=== PATIENT | female | born 1985 | race Caucasian/White ===

== ENCOUNTER 2020-02-07 04:39 | Observation (INO) | payer OTHER ==
[~2020-02-07] VITALS: Ht 172.7 cm; Wt 48.8 kg
[2020-02-07] MEDS ORDERED: NS 1,000 ML IV ONE ×2 (06:15→08:30)
[2020-02-07] MEDS ORDERED: ONDANSETRON 4MG/2ML VIAL IV ONE (06:15)
[2020-02-07 06:29] LABS: BASO # 0.1 10^3/uL (0.0-0.2); BASO % 0.5 % (0.0-1.0); EOS # 0.3 10^3/uL (0.0-0.5); EOS % 1.8 % (0.0-3.0); HEMATOCRIT 45.2 % (36.0-47.0); HEMOGLOBIN 14.3 g/dl (12.0-15.5); LYMPH % 15.7 % (24.0-44.0); MEAN CORPUSCULAR HEMOGLOBIN 30.4 pg (27.0-33.0); MEAN CORPUSCULAR HGB CONC 31.6 g/dl (32.0-36.5); MONO # 1.3 10^3/uL (0.0-0.8); MONO % 6.6 % (0.0-5.0); NEUTROPHILS # 14.5 10^3/uL (1.5-8.5); NEUTROPHILS % 74.9 % (36.0-66.0); PLATELET COUNT, AUTOMATED 311 10^3/uL (150-450); RED BLOOD COUNT 4.71 10^6/uL (4.00-5.40); WHITE BLOOD COUNT 19.3 10^3/uL (4.0-10.0)
[2020-02-07] MEDS ORDERED: HYDROMORPHONE HCL 0.5 MG/ 0.5 ML SYRINGE (J1170 PER 1) IV ONE (06:30)
[2020-02-07 06:52] LABS: ALT/SGPT 18 U/L (12-78); BILIRUBIN,DIRECT 0.1 MG/DL (0.0-0.2); BILIRUBIN,TOTAL 0.3 MG/DL (0.2-1.0); BLOOD UREA NITROGEN 15 MG/DL (7-18); CALCIUM LEVEL 9.6 MG/DL (8.5-10.1); CARBON DIOXIDE LEVEL 28 MEQ/L (21-32); CHLORIDE LEVEL 109 MEQ/L (98-107); CREATININE FOR GFR 0.88 MG/DL (0.55-1.30); GLOMERULAR FILTRATION RATE > 60.0 (>60); GLUCOSE, FASTING 101 MG/DL (70-100); HCG, SERUM QUANTITATIVE < 1.0 MIU/ML; LIPASE 167 U/L (73-393); POTASSIUM SERUM 4.2 MEQ/L (3.5-5.1); SODIUM LEVEL 143 MEQ/L (136-145); TOTAL PROTEIN 7.6 GM/DL (6.4-8.2)
--- NOTE | 2020-02-07 07:57 | REPVR ---
PROCEDURE INFORMATION: Exam: CT Abdomen And Pelvis Without Contrast Exam date and time: 02/07/2020 7:43 AM Age: 34 years old Clinical indication: Condition or disease; Other: History of sma syndrome here with periumbilical pain TECHNIQUE: Imaging protocol: Computed tomography of the abdomen and pelvis without contrast. Radiation optimization: All CT scans at this facility use at least one of these dose optimization techniques: automated exposure control; mA and/or kV adjustment per patient size (includes targeted exams where dose is matched to clinical indication); or iterative reconstruction. COMPARISON: No relevant prior studies available. FINDINGS: Liver: No mass. Gallbladder and bile ducts: No calcified stones. No ductal dilation. Pancreas: No ductal dilation. Spleen: No splenomegaly. Adrenals: No mass. Kidneys and ureters: No hydronephrosis. Stomach and bowel: See "Intraperitoneal space" finding. Appendix: No evidence of appendicitis. Intraperitoneal space: There is a paucity of intra-abdominal fat, which degrades assessment particularly of the bowel configuration. There does however appear to be narrowing of the duodenum inferior to the superior mesenteric artery consistent with known SMA syndrome. The stomach is patulous although not substantially distended. No bowel obstruction. Vasculature: No abdominal aortic aneurysm. Lymph nodes: No enlarged lymph nodes. Urinary bladder: Unremarkable as visualized. Reproductive: Unremarkable as visualized. Bones/joints: No acute fracture. 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 Soft tissues: Unremarkable. Other findings: Evaluation of solid organs and vasculature is suboptimal lacking intravenous contrast. IMPRESSION: 1. Suboptimal study lacking intravenous contrast particularly in a thin patient with a paucity of abdominal fat. Allowing for this, there is no acute intra-abdominal abnormality. 2. Narrowing of the duodenum inferior to the superior mesenteric artery consistent with known SMA syndrome. The stomach is patulous although nondistended, and there is no bowel obstruction. Electronically signed by: Jose Manuel Sims On 02/07/2020 07:57:37 AM
[2020-02-07] MEDS ORDERED: PROMETHAZINE INJ 25 MG/ML VIAL (J2550) IV ONE (08:00)
[2020-02-07] MEDS ORDERED: METOCLOPRAMIDE INJ 10MG/2ML VIAL (J2765 PER 1) IV ONE (09:45)
[2020-02-07] MEDS: HYDROMORPHONE HCL 0.5 MG/ 0.5 ML SYRINGE (J1170 PER 1) IV PRN ×2 (09:53→10:36)
[2020-02-07] MEDS ORDERED: diphenhydrAMINE 50MG/ML VIAL (J1200) As Ordered ONE (12:26)
[2020-02-07] MEDS: DICYCLOMINE INJ 20MG/2ML (J0500) IM SCH ×3 (12:36→21:44)
[2020-02-07] MEDS: D5W/0.9% SODIUM CHLORIDE 1,000 ML IV SCH (12:36)
[2020-02-07 12:55] VITALS: BP 108/75
[2020-02-07] MEDS ORDERED: HYDROMORPHONE HCL 0.5 MG/ 0.5 ML SYRINGE (J1170 PER 1) IV PRN ×2 (13:00)
[2020-02-07] MEDS ORDERED: HYOSCYAMINE SULFATE 0.125 MG SUBL TABLET SL ONE (13:00)
[2020-02-07] MEDS ORDERED: diphenhydrAMINE 50MG/ML VIAL (J1200) IV ONE (13:00)
--- NOTE | 2020-02-07 13:27 | HPEPDOC ---
General Date of Admission Feb 07, 2020 at 04:40 Date of Service: Feb 07, 2020 Chief Complaint The patient is a 34-year-old female admitted with a reason for visit of Intractable Vomiting. Source: Patient History of Present Illness 34-year-old female with a past medical history of chronic abdominal abdomen attributed to SMA syndrome, history of H. pylori infection , anxiety, depression status post surgery for SMA syndrome in november 2019 at [facility] in [place], [place] recently moved up here 1 month ago to be close to her father and rest of the family members presented to the emergency room because of severe abdominal pain and spasm with intractable nausea and vomiting for the past 2 days. She reports that she hasn't been able to keep anything down for the past 2 days. She denies any diarrhea. Currently she is having retching and dry heaving. She did report that she has chronic abdominal pain and for that she takes hyoscyamine sublingually. She reports that she is allergic to morphine, ketamine, haloperidol, and the only things that help her with the abdominal pain is a Dilaudid and Ativan. . She reports that she has lost about 20 pounds of weight in the past 2 years. In regards to her abdominal pain. It is spasmodic in nature. 10/ 10 in intensity. Located in the epigastrium and periumbilical region with radiation all over the abdomen. During episodes of pain she would sit forward in child's pose ( knee-Chest) position with a pillow stuffed underneath her belly. , It seems that she feels comfortable in this position. During my interview, she was shivering and her teeth were chattering and she says that she has these before of severe episode of pain comes on. Denied being cold. CT done in the emergency room showed narrowing of the duodenum inferior to the superior mesenteric artery, consistent with known eczema syndrome. The stomach was patulous, although not substantially distended, though the study was suboptimal due to lack of intravenous contrast. Return contrast and the possibility of abdominal fat She was admitted for intractable abdominal pain, nausea and vomiting, unable to keep any food down for further evaluation and management. Home Medications No Active Prescriptions or Reported Meds Allergies Coded Allergies: Iodine and Iodide Containing Produc (Verified Allergy, Severe, SOB, 02/07/20) NEEDS PRE-TREATMENT FIRST haloperidol (Verified Allergy, Severe, SPIKES ANXIETY, 02/07/20) ketamine (Verified Allergy, Severe, ANAPHYLACTIC, 02/07/20) shellfish derived (Verified Allergy, Severe, ANAPHYLACTIC, 02/07/20) Penicillins (Verified Allergy, Mild, HIVES, 02/07/20) morphine (Verified Allergy, Mild, RASH, 02/07/20) Past Medical History Medical History SMA syndrome s/p surgery in November in [facility] in [place]. Gastroparesis Chronic abdominal pain Malnutrition Anxiety, depression Surgical History Breast Augmentation Duodenal Surgery for SMA syndrome Hystroscopy and opening of bilateral tubes Family History Mother Drug addict 1 bother and sister drug addict Maternal grand mother and maternal great grandmother has dementia Paternal grandfather gallbladder problems. Father and other members of the father's family with hypertension Social History * Smoker: non-smoker Alcohol: Denies Drugs: marijuana (occasionally) A-FIB/CHADSVASC A-FIB History Current/History of A-Fib/PAF?: No Review of Systems Constitutional: Denies: Chills, Fever, Night Sweats Eyes: Denies: Pain, Vision change ENT: Denies: Head Aches, Ear Pain, Dysphagia Skin: Denies: Rash, Lesions, Breakdown Pulmonary: Denies: Dyspnea, Cough Cardiovascular: Denies: Chest Pain, Palpitations, Orthopnea, Paroxysmal Noc. Dyspnea, Lt Headedness Gastrointestinal: Reports: Nausea, Vomiting, Abdominal Pain; Denies: Diarrhea Genitourinary: Denies: Dysuria, Frequency, Incontinence, Retention Hematologic: Denies: Bruising, Bleeding Excessively Musculoskeletal: Denies: Neck Pain, Back Pain, Joint Pain, Muscle Pain, Spasms Neurological: Denies: Weakness, Numbness, Change in speech, Confusion Physical Examination General Exam: Positive: Alert, Cooperative, Severe Distress (, abdominal pain) Eye Exam: Positive: PERRLA, Conjunctiva & lids normal, EOMI; Negative: Sclera icteric ENT Exam: Positive: Atraumatic, Mucous membr. moist/pink, Pharynx Normal, Other ENT (, bitemporal wasting) Neck Exam: Positive: Supple; Negative: JVD, thyromegaly Chest Exam: Positive: Clear to auscultation, Normal air movement Heart Exam: Positive: Tachycardic, Regular Rhythm, Normal S1, Normal S2; Negative: Murmurs, Rubs Telemetry: Positive: No significant arrhythmia Abdomen Exam: Positive: BS Hypoactive, Soft, Tenderness Extremity Exam: Positive: Normal pulses; Negative: Clubbing, Cyanosis, Edema Skin Exam: Positive: Nl turgor and temperature; Negative: Breakdown, Lesion Psych Exam: Positive: Anxiety, Memory Intact, Oriented x 3 Vital Signs Vital Signs Date Time Temp Pulse Resp B/P (MAP) Pulse Ox O2 Delivery O2 Flow Rate FiO2 02/07/20 12:29 98.2 02/07/20 12:15 107 18 130/89 (103) 99 Room Air Laboratory Data Labs 24H Laboratory Tests 2 02/07/20 06:17: Immature Granulocyte % (Auto) 0.5, Neutrophils (%) (Auto) 74.9H, Lymphocytes (%) (Auto) 15.7L, Monocytes (%) (Auto) 6.6H, Eosinophils (%) (Auto) 1.8, Basophils (%) (Auto) 0.5, Neutrophils # (Auto) 14.5H, Lymphocytes # (Auto) 3.0, Monocytes # (Auto) 1.3H, Eosinophils # (Auto) 0.3, Basophils # (Auto) 0.1, Nucleated Red Blood Cells % (auto) 0.0, Anion Gap 6L, Glomerular Filtration Rate > 60.0, Lactic Acid Level 1.7, Calcium Level 9.6, Total Bilirubin 0.3, Direct Bilirubin 0.1, Aspartate Amino Transf (AST/SGOT) 14, Alanine Aminotransferase (ALT/SGPT) 18, Alkaline Phosphatase 58, Total Protein 7.6, Albumin 4.0, Albumin/Globulin Ratio 1.1L, Lipase 167, Human Chorionic Gonadotropin, Quant < 1.0 02/07/20 10:54: Urine Color YELLOW, Urine Appearance TURBIDH, Urine pH 8.0, Urine Specific [place] 1.012, Urine Protein 1+H, Urine Glucose (UA) NEGATIVE, Urine Ketones TRACEH, Urine Blood NEGATIVE, Urine Nitrite NEGATIVE, Urine Bilirubin NEGATIVE, Urine Urobilinogen 0.2, Urine Leukocyte Esterase NEGATIVE, Urine WBC (Auto) 0, Urine RBC (Auto) 0, Urine Hyaline Casts (Auto) 0, Urine Bacteria (Auto) NEGATIVE, Urine Squamous Epithelial Cells 1, Urine Amorphous Sediment LARGEH, Urine Mucus (Auto) SMALL, Urine Sperm (Auto) CBC/BMP Laboratory Tests 02/07/20 06:17 Assessment/Plan 34-year-old female with a past medical history of chronic abdominal abdomen attributed to SMA syndrome, history of H. pylori infection , anxiety, depression status post surgery for SMA syndrome in november 2019 at [facility] in [place] recently moved up here 1 month ago to be close to her father and rest of the family members presented to the emergency room because of severe abdominal pain and spasm with intractable nausea and vomiting for the past [address] done in the emergency room showed narrowing of the duodenum inferior to the superior mesenteric artery, consistent with known eczema syndrome. The stomach was patulous, although not substantially distended, though the study was suboptimal due to lack of intravenous contrast. Return contrast and the possibility of abdominal fat She was admitted for intractable abdominal pain, nausea and vomiting, unable to keep any food down for further evaluation Nausea/ Vomiting / abdominal pain Has H/o SMA syndrome this may have been precipitated/ worsened by Weight loss R/O gastroparesis. Gastric emptying study IVF, NPO, Metronidazole, zofran, dilaudid, hyoscamine S?L, dicyclomine IM. Severe protein Calorie Malnutrition BMI of 15.4, wasting of intercostal muscles of the chest and bitemporal wasting. ? Eating disorder Denies any drug abuse. Anxiety Benadryl Leukocytosis this is probably due to reactive Demargination due to severe pain and vomiting No signs or symptoms of infection found Plan / VTE VTE Prophylaxis Ordered?: Yes MAIKEL SOTO MD Feb 07, 2020 13:27
[2020-02-07] MEDS: METOCLOPRAMIDE INJ 10MG/2ML VIAL (J2765 PER 1) IV SCH ×2 (15:45→21:45)
[2020-02-07] MEDS: ONDANSETRON 4MG/2ML VIAL IV PRN (16:47)
[2020-02-07 22:00] VITALS: BP 126/64
[2020-02-08] MEDS ORDERED: LORazepam 2 MG TAB PO ONE (00:30)
[2020-02-08] MEDS: D5W/0.9% SODIUM CHLORIDE 1,000 ML IV SCH ×3 (00:30→22:18)
[2020-02-08] MEDS: HYOSCYAMINE SULFATE 0.125 MG SUBL TABLET SL PRN ×2 (00:30→22:18)
[2020-02-08] MEDS: ONDANSETRON 4MG/2ML VIAL IV PRN ×2 (00:34→16:30)
[2020-02-08] MEDS ORDERED: LORazepam 2 MG/ML VIAL IV PRN (01:00)
[2020-02-08] MEDS: METOCLOPRAMIDE INJ 10MG/2ML VIAL (J2765 PER 1) IV SCH ×4 (03:59→20:40)
[2020-02-08 06:00] VITALS: BP 111/62
[2020-02-08] MEDS: DICYCLOMINE INJ 20MG/2ML (J0500) IM SCH ×3 (09:00→20:40)
[2020-02-08 11:07] LABS: HEMATOCRIT 38.1 % (36.0-47.0); MEAN CORPUSCULAR HEMOGLOBIN 31.4 pg (27.0-33.0); MEAN CORPUSCULAR HGB CONC 31.8 g/dl (32.0-36.5); PLATELET COUNT, AUTOMATED 225 10^3/uL (150-450); RED BLOOD COUNT 3.85 10^6/uL (4.00-5.40); WHITE BLOOD COUNT 8.4 10^3/uL (4.0-10.0)
[2020-02-08 11:24] LABS: HEMOGLOBIN 12.1 g/dl (12.0-15.5)
[2020-02-08 11:35] LABS: BLOOD UREA NITROGEN 9 MG/DL (7-18); CALCIUM LEVEL 7.8 MG/DL (8.5-10.1); CARBON DIOXIDE LEVEL 26 MEQ/L (21-32); CHLORIDE LEVEL 112 MEQ/L (98-107); GLOMERULAR FILTRATION RATE > 60.0 (>60); GLUCOSE, FASTING 88 MG/DL (70-100); POTASSIUM SERUM 3.9 MEQ/L (3.5-5.1); SODIUM LEVEL 143 MEQ/L (136-145)
[2020-02-08] MEDS: HYDROMORPHONE HCL 0.5 MG/ 0.5 ML SYRINGE (J1170 PER 1) IV PRN ×3 (13:42→20:39)
[2020-02-08 14:00] VITALS: BP 108/77
--- NOTE | 2020-02-08 18:32 | IPNPDOC ---
Text Note Date of Service The patient was seen on 02/08/20. NOTE HPI: Ms. Ramos is a 34 yo F with a PMHx of SMA syndrome that presented to the ED complaining of intractable nausea and vomiting of 2 days duration. SUBJECTIVE: No acute events overnight. Pt states that she has not had any vomiting since last night in the ED. She states that her abdominal pain has improved. Pt denies feeling feverish, short of breath, or having chest pain. OBJECTIVE: VITAL SIGNS: please see below. GENERAL: Pt is a lethargic appearing very cachectic, thin female, laying in the position in bed, in no acute distress. HEENT: NC, AT, no scleral icterus, EOMI, PERRL, no pharyngeal erythema. CV: RRR, no murmurs, rubs, or gallops. RESP: CTAB, no rales, rhonchi, or wheezes. ABDOMEN: soft, nontender, nondistended, bowel sounds present in all quadrants, no obvious masses/organomegaly appreciated EXTREMITIES: no swelling or edema. PSYCH: AAOx3, lethargic LABORATORY: please see below MICROBIOLOGY: none. IMAGING: CT ABD/PELVIS: Impression "1. Suboptimal study lacking intravenous contrast particularly in a thin patient with a paucity of abdominal fat. Allowing for this, there is no acute intra-abdominal abnormality. 2. Narrowing of the duodenu m inferior to the superior mesenteric artery consistent with known SMA syndrome. The stomach is patulous although nondistended, and there is no bowel obstruction." GASTRIC EMPTYING STUDY: Pending official read ASSESSMENT/PLAN: Ms. Ramos is a 34 yo F with a PMHx of SMA syndrome s/p recent surgery (November 2019) for rerouting of mesenteric artery that presented with intractable vomiting of 2 days duration, found to have post-surgical pain concerning for postoperative complication. # Nausea/Vomiting and abdominal pain 2/2 SMA syndrome, questionable postsurgical complication? -Pt is on dilaudid, Bentyl and Levsin for pain control. -Pt is on zofran, Reglan for nausea -Continue IVF NS 100 cc/hr -Clear liquid diet ordered, continue as tolerated. Will upgrade diet as tolerated. -Gastric emptying study done today to rule out gastroparesis 2/2 recent surgery. Pending official read -In process of obtaining records from previous hospital that performed surgery. Admitting physician spoke to General Surgery, who requested records of type of surgery performed in order to determine whether additional surgery warranted/necessary -Monitoring QTc, WNL at this point #. Anxiety and depression -Continue Ativan for time being only. We do not foresee discharge on this medication to prevent dependence #. Low body weight, BMI 16.4 -Pt denies eating disorder or drug use. Likely etiology of SMA syndrome -Patient will need outpatient nutrition counseling DVT PPX: TEDs/SCDs VS,Fishbone, I+O VS, Fishbone, I+O Laboratory Tests 02/08/20 10:49 Vital Signs Date Time Temp Pulse Resp B/P (MAP) Pulse Ox O2 Delivery O2 Flow Rate FiO2 02/08/20 06:00 98.1 59 16 111/62 (78) 99 Room Air I&O- Last 24 Hours up to 6 AM 02/08/20 06:00 Intake Total 4040 ml Output Total 620 ml Balance 3420 ml GME ATTESTATION GME ATTESTATION My faculty preceptor for this patient encounter was physically present during the encounter and was fully available. All aspects of the patient interview, examination, medical decision making process, and medical care plan development were reviewed and approved by the faculty preceptor. The faculty preceptor is aware and concurs with the plan as stated in the body of this note and will attest to such by his/her cosignature. ATTENDING NOTE Patient was seen and examined by me personally with the residents and the students. Agree with the above assessment and plan. RADHA KEENAN OMS-3 Feb 08, 2020 13:33 CHARY JACKSON MD Feb 08, 2020 18:32 VIVIAN ORTA MD Feb 12, 2020 14:05
[2020-02-08] MEDS: LORazepam 0.5 MG TAB PO PRN (22:20)
[2020-02-09] MEDS: ONDANSETRON 4MG/2ML VIAL IV PRN (00:41)
[2020-02-09] MEDS: HYDROMORPHONE HCL 0.5 MG/ 0.5 ML SYRINGE (J1170 PER 1) IV PRN ×5 (00:42→21:12)
[2020-02-09] MEDS: METOCLOPRAMIDE INJ 10MG/2ML VIAL (J2765 PER 1) IV SCH ×4 (03:55→21:05)
[2020-02-09 05:51] LABS: BASO # 0.1 10^3/uL (0.0-0.2); BASO % 0.6 % (0.0-1.0); EOS # 0.3 10^3/uL (0.0-0.5); EOS % 2.9 % (0.0-3.0); HEMATOCRIT 39.1 % (36.0-47.0); HEMOGLOBIN 12.3 g/dl (12.0-15.5); LYMPH # 2.1 10^3/uL (1.5-5.0); LYMPH % 24.1 % (24.0-44.0); MEAN CORPUSCULAR HEMOGLOBIN 30.8 pg (27.0-33.0); MEAN CORPUSCULAR HGB CONC 31.5 g/dl (32.0-36.5); MEAN CORPUSCULAR VOLUME 97.8 fl (80.0-96.0); MONO # 0.8 10^3/uL (0.0-0.8); MONO % 9.3 % (0.0-5.0); NEUTROPHILS # 5.6 10^3/uL (1.5-8.5); NEUTROPHILS % 62.5 % (36.0-66.0); PLATELET COUNT, AUTOMATED 230 10^3/uL (150-450); WHITE BLOOD COUNT 8.9 10^3/uL (4.0-10.0)
[2020-02-09 06:00] VITALS: BP 110/82
[2020-02-09 06:10] LABS: BLOOD UREA NITROGEN 6 MG/DL (7-18); CALCIUM LEVEL 7.8 MG/DL (8.5-10.1); CARBON DIOXIDE LEVEL 27 MEQ/L (21-32); CHLORIDE LEVEL 109 MEQ/L (98-107); CREATININE FOR GFR 0.62 MG/DL (0.55-1.30); GLOMERULAR FILTRATION RATE > 60.0 (>60); GLUCOSE, FASTING 78 MG/DL (70-100); POTASSIUM SERUM 3.3 MEQ/L (3.5-5.1); SODIUM LEVEL 142 MEQ/L (136-145)
[2020-02-09] MEDS ORDERED: POTASSIUM CHLORIDE 10 MEQ SR TABLET PO ONE (08:00)
[2020-02-09] MEDS: HYOSCYAMINE SULFATE 0.125 MG SUBL TABLET SL PRN ×2 (08:27→15:52)
[2020-02-09] MEDS: DICYCLOMINE INJ 20MG/2ML (J0500) IM SCH ×3 (08:27→21:05)
[2020-02-09] MEDS: D5W/0.9% SODIUM CHLORIDE 1,000 ML IV SCH ×3 (08:42→18:18)
[2020-02-09] MEDS: LORazepam 0.5 MG TAB PO PRN ×2 (11:00→23:34)
[2020-02-09 14:00] VITALS: BP 117/86
--- NOTE | 2020-02-09 18:05 | IPNPDOC ---
Date Seen The patient was seen on 02/09/20. Progress Note SUBJECTIVE: Patient was seen and examined at bedside this morning. Reports severe left upper quadrant and epigastric pain. Reports ongoing vomiting, bilious this morning. Asking to be discharged, however, at this time is not tolerating by mouth hydration, requires IV analgesia. Patient tolerated a small amount of the 25% of lunch tray at a full liquid diet. Pending surgical evaluation. Vitals: please see below: General: Patient is thin, bent over on bed, in pain. HEENT: PERRLA, EOMI, sclerae clear Neck: supple, normal ROM, no JVD Respiratory: lungs CTAB, no wheeze, no rales, no crackles CVS: RRR, normal S1, S2, no murmurs Abdo: soft, no masses, no hepatosplenomegaly, BS+, pain to palpation in the left upper quadrant. Extremities: no edema, pulses 2+ MSK: no joint deformities, normal ROM Neuro: no focal neuro deficits, moving all 4 extremities, CN2-12 intact. Strength 5/5 in all 4 extremities. No nystagmus. Psych: calm, cooperative, AAO x 3 LABORATORY DATA, IMAGING STUDIES, MICROBIOLOGY: Please see below. DVT prophylaxis ordered?: Y ASSESSMENT AND PLAN: Ms. Ramos is a 34 yo F with a PMHx of SMA syndrome s/p recent surgery (November 2019) for rerouting of mesenteric artery that presented with intractable vomiting of 2 days duration, found to have post-surgical pain concerning for postoperative complication. Consulted Dr. Guzman for surgical evaluation. PROBLEMS: # Nausea/Vomiting and abdominal pain 2/2 SMA syndrome, questionable postsurgical complication? -Pt is on dilaudid, Bentyl and Levsin for pain control. -Pt is on zofran, Reglan for nausea -Continue IVF NS 100 cc/hr -Upgraded to full liquid diet today. Patient a 25%. X-ray. -Gastric emptying study preliminary discussed with Dr. Bazan. Total transit time 216 minutes, increased from normal of 90. -In process of obtaining records from previous hospital that performed surgery. Admitting physician spoke to General Surgery, who requested records of type of surgery performed in order to determine whether additional surgery warranted/necessary #. Anxiety and depression -Continue Ativan when necessary. #. Low body weight, BMI 16.4 - Denies behavior suggests to of eating disorder. - Likely due to poor by mouth intake from chronic complaint of abdominal pain and vomiting. DVT PPX: TEDs/SCDs VS, I&O, 24H, Fishbone Vital Signs/I&O Vital Signs Date Time Temp Pulse Resp B/P (MAP) Pulse Ox O2 Delivery O2 Flow Rate FiO2 02/09/20 16:05 15 Room Air 02/09/20 14:00 97.8 73 117/86 (96) 98 I&O- Last 24 Hours up to 6 AM 02/09/20 06:00 Intake Total 2700 ml Output Total 2100 ml Balance 600 ml Laboratory Data 24H LABS Laboratory Tests 2 02/09/20 05:34: Immature Granulocyte % (Auto) 0.6, Neutrophils (%) (Auto) 62.5, Lymphocytes (%) (Auto) 24.1, Monocytes (%) (Auto) 9.3H, Eosinophils (%) (Auto) 2.9, Basophils (%) (Auto) 0.6, Neutrophils # (Auto) 5.6, Lymphocytes # (Auto) 2.1, Monocytes # (Auto) 0.8, Eosinophils # (Auto) 0.3, Basophils # (Auto) 0.1, Nucleated Red Blood Cells % (auto) 0.0, Anion Gap 6L, Glomerular Filtration Rate > 60.0, C alcium Level 7.8L CBC/BMP Laboratory Tests 02/09/20 05:34 VANESSA JARVIS MD Feb 09, 2020 18:05
[2020-02-09] MEDS ORDERED: PANTOPRAZOLE 40MG TAB (PROTONIX) PO SCH (21:00)
[2020-02-09 22:00] VITALS: BP 137/92
[2020-02-10] MEDS: HYDROMORPHONE HCL 0.5 MG/ 0.5 ML SYRINGE (J1170 PER 1) IV PRN ×2 (01:30→08:09)
[2020-02-10] MEDS: ONDANSETRON 4MG/2ML VIAL IV PRN ×2 (01:30→12:19)
[2020-02-10] MEDS: METOCLOPRAMIDE INJ 10MG/2ML VIAL (J2765 PER 1) IV SCH ×2 (02:59→08:09)
[2020-02-10] MEDS: HYOSCYAMINE SULFATE 0.125 MG SUBL TABLET SL PRN ×2 (04:29→12:19)
[2020-02-10] MEDS: D5W/0.9% SODIUM CHLORIDE 1,000 ML IV SCH ×2 (04:29→10:30)
[2020-02-10 06:00] VITALS: BP 127/90
[2020-02-10 06:55] LABS: BASO % 0.5 % (0.0-1.0); EOS # 0.3 10^3/uL (0.0-0.5); EOS % 3.4 % (0.0-3.0); HEMATOCRIT 40.9 % (36.0-47.0); HEMOGLOBIN 13.2 g/dl (12.0-15.5); LYMPH # 2.2 10^3/uL (1.5-5.0); LYMPH % 25.9 % (24.0-44.0); MEAN CORPUSCULAR HEMOGLOBIN 30.3 pg (27.0-33.0); MEAN CORPUSCULAR HGB CONC 32.3 g/dl (32.0-36.5); MONO # 0.9 10^3/uL (0.0-0.8); MONO % 10.6 % (0.0-5.0); NEUTROPHILS # 5.1 10^3/uL (1.5-8.5); NEUTROPHILS % 59.4 % (36.0-66.0); PLATELET COUNT, AUTOMATED 265 10^3/uL (150-450); RED BLOOD COUNT 4.35 10^6/uL (4.00-5.40); WHITE BLOOD COUNT 8.5 10^3/uL (4.0-10.0)
[2020-02-10 07:26] LABS: ALBUMIN 3.2 GM/DL (3.2-5.2); ALT/SGPT 20 U/L (12-78); BILIRUBIN,TOTAL 0.6 MG/DL (0.2-1.0); BLOOD UREA NITROGEN 6 MG/DL (7-18); CALCIUM LEVEL 8.3 MG/DL (8.5-10.1); CARBON DIOXIDE LEVEL 28 MEQ/L (21-32); CHLORIDE LEVEL 113 MEQ/L (98-107); GLOMERULAR FILTRATION RATE > 60.0 (>60); GLUCOSE, FASTING 96 MG/DL (70-100); POTASSIUM SERUM 3.5 MEQ/L (3.5-5.1); SODIUM LEVEL 143 MEQ/L (136-145); TOTAL PROTEIN 6.6 GM/DL (6.4-8.2)
[2020-02-10] MEDS: DICYCLOMINE INJ 20MG/2ML (J0500) IM SCH (08:09)
--- NOTE | 2020-02-10 08:14 | CR ---
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 HISTORY OF PRESENT ILLNESS: The patient is a 34-year-old woman, who was admitted on 02/07/2020 for treatment of abdominal pain with recurrent nausea and vomiting. Patient has a history of a diagnosis of superior mesenteric artery syndrome that was treated surgically in November of 2018 in [place]. Patient reports that her history of abdominal troubles goes back to 2013. She reports that she had been having some episodes of abdominal discomfort. She was diagnosed ultimately with Helicobacter Pylori infection based on some lab work. She underwent treatment on two separate occasions with antibiotics. In that same timeframe, she developed a urinary tract infection that she reports was from [facility] and she associates this infection with her H. Pylori. She developed problems with crampy abdominal pain with several days of nausea and vomiting occurring intermittently. She was seen by a holistic provider, who diagnosed her with leaky gut and had her doing some electromagnetic treatments for realigning her bodys electrical activity with the earth. In March of 2018, she developed repeated vomiting with severe pains associated. In July of 2018, by her report, she had a CT scan obtained that reportedly was interpreted as showing superior mesenteric artery syndrome. She continued to have intermittent episodes of severe crampy upper abdominal pain with frequent nausea and vomiting. On 11/28/2018, she underwent surgery, which she describes as her duodenum having been moved out from under the superior mesenteric artery. This was done through an upper midline incision. She initially reports that there was no improvement in her symptoms, but subsequently in our discussion she allowed that this had decreased the frequency of her attacks. She reports now that she can often go 2-3 weeks feeling entirely normal as far as her ability to take in food and fluids and have regular bowel function. She will then note a flare-up where she notes persistent nausea and develops severe abdominal pain with recurrent retching and vomiting. She reports that she frequently awakens in the morning and will vomit a small amount of bilious fluid. She described intermittent bad gas pains. She reports that from January of last year to July of this year she was having significant problems with severe anxiety, that seemed to improve in the spring. She reports that exposure to stress or stressful situations and sometimes cigarette smoking may bring on her attacks. When the pain is worse, she will soak in a hot tub for up to 45 minutes to achieve some relief. Patient denies any alcohol intake. She does not smoke. She tries to avoid greasy foods. She reports that she has always been thin and that this is typical of her fathers side of the family. She reports a maximum weight of 115 pounds and was at her lowest of about 90 pounds when she was most ill. She reports that she believes she is approximately 106 pounds now. Patient reports that she did have an upper GI series with her capacity planning analyst in October of this [place] and was diagnosed with irritable bowel syndrome and adhesions. Patient reports no other abdominal surgery. She was admitted by the hospitalist and has been treated medically since the . She reports that she had pain and vomiting for two days before presenting. She is now able to take some clear liquids and has started some full liquids today. MEDICATIONS: Patient reports that prior to admission she as taking occasional Ativan and a Probiotic and some times some Hyoscyamine. ALLERGIES: Allergies are reported to iodine and iodine containing products, penicillins, Haldol, Ketamine, morphine and shellfish derived products. MEDICAL HISTORY: Patient does report a history of significant anxiety at times. She is not currently under any treatment for this. She denies any heart or lung problems. She denies diabetes or thyroid issues. She reports that she has actually been gaining weight recently. SURGICAL HISTORY: Patient underwent bilateral breast augmentation in 2010, she has had her wisdom teeth removed, and had procedure for her superior mesenteric artery syndrome on 11/28/2018. FAMILY HISTORY: Patient's mother apparently had a problem with drug addiction. Her paternal grandfather had gallbladder issues and other members of the family have hypertension. SOCIAL HISTORY: Patient denies tobacco use or alcohol intake. 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 REVIEW OF SYSTEMS: Patient has had no fevers or chills. She denies any history of bleeding per rectum or vomiting blood. She has no shortness of breath, chest pain, cough or wheezing. She denies any dysuria or hematuria. There are no bone or joint problems and no history of DVT or pulmonary embolus. PHYSICAL EXAMINATION: Reveals a thin young woman in no obvious discomfort at this time. Most recent vital signs reveal temperature 97.8, pulse 73, respirations 18 and blood pressure 117/86. She is alert and oriented. She speaks freely and appears to have a good understanding of her own medical history. Sclerae are anicteric. Mucous membranes are moist. Neck is supple. Heart exam shows a regular rhythm. The lungs are clear bilaterally. She is of quite a thin build and she is thin. She does not to my mind appear emaciated. The abdomen is flat. She has a well healed scar in the epigastrium extending from the umbilicus superiorly. She has a piercing at the top of the umbilicus with a small ornament in place. She has bowel sounds present throughout the abdomen. The abdomen is non-distended. She does report some tenderness in the left upper quadrant with pressure in this area. The remainder of the abdomen is soft and without evident tenderness. There is no sign of hernia. Extremities are thin with no edema. She has palpable radial and pedal pulses. LABORATORY STUDIES: At the time of admission showed white count 19,000 with hemoglobin 14 and hematocrit 45, and platelet count 311,000. Differential count showed 75% neutrophils and 16% lymphocytes. This morning, two days later, white count 9, hemoglobin 12, hematocrit 39, and platelet count 230,000. Differential count normal. Chemistries at the time of admission showed normal electrolytes with the exception of chloride 109. Liver function tests all normal. Total protein and albumin normal at 7.6 and 4.0. This morning, electrolytes showed sodium 142, potassium 3.3, chloride 109, CO2 27, BUN 6, creatinine 0.6 and glucose 78. Urinalysis had shown no evidence of infection on the . IMAGING DATA: She had a CT scan without any contrast on the , which made interpretation somewhat difficult. The radiologist interpreted the study as suboptimal. He did suggest narrowing of the duodenum inferior to the superior mesenteric artery, consistent with known SMA syndrome. The stomach was reportedly patulous, but non-distended and there was no sign of bowel obstruction. I reviewed these images personally and would say that I found the study very difficult to interpret with no oral or I.V. contrast. I could not say that I clearly identified the duodenum or a narrowing therein. She had a nuclear gastric emptying study on the , which was interpreted as showing a delayed emptying. Her T 1/2 of emptying was 216 minutes as opposed to normal of 90 minutes. IMPRESSION: 1. Episodic intermittent abdominal pain with nausea and vomiting. 2. Reported history of SMA syndrome; treated surgically in [place] November 2018. 3. Anxiety. RECOMMENDATIONS: The patient was diagnosed with superior mesenteric artery syndrome in [place] slightly over a year ago. She underwent surgery at that time. She does report some improvement following that surgery. I do not have any operative report or any other reports of what were probably multiple prior studies. She does report having had previous upper and lower endoscopies as well as other scans. By her description, she underwent a procedure to move the duodenum from beneath the superior mesenteric artery and this is a recognized procedure for this diagnosis. Her history is not I think typical for intermittent intestinal obstructions. She reports that she can go for several weeks at a time feeling absolutely normal before she gets an episode of severe pain with nausea and vomiting. This does not sound like an anatomical problem to account for this. She does report a history of anxiety. She apparently is not under any treatment for the anxiety at this time. I think it is certainly possible that her gastrointestinal symptoms are linked in some way to the anxiety. She certainly is thin, but she does not appear emaciated and she reports that she has never weighed more than 115 pounds. I think some of her built may represent a genetically thin stature. Her albumin and total protein were normal at the time of admission, and though she might have been somewhat dehydrated at the time of admission, these have not been rechecked since she was admitted. She interestingly reports that she is able to drink chocolate milk without any problems, but has difficulty drinking other fluids when she feels nauseous including water. Unfortunately, I have no access to any prior studies. The patient is eager to alleviate all of her symptoms, but would like to avoid use of any medications. I advised her that I certainly do not have a ready solution to her problem. She has undergone multiple tests elsewhere with a major surgical procedure a year ago for the diagnosis of superior mesenteric artery syndrome. I advised her that we should try to obtain records from her most recent studies elsewhere and her surgical procedure before leaping into repeating multiple imaging procedures. She will need to establish with a local primary physician to assist in management. It may well be that referral to a major referral center would be appropriate given the infrequent diagnosis and the prior surgery. I will be happy to follow her during her stay here in the hospital to see how things proceed. DEMI
--- NOTE | 2020-02-10 08:35 | REP ---
GASTRIC EMPTYING NUCLEAR SCINTIGRAPHY HISTORY: Abdominal pain. Nausea and vomiting. TECHNIQUE: 1.08 millicuries of technetium 99m sulfur colloid is ingested in one scrambled egg with 2 ounces of water. Sequential anterior abdominal images are acquired over an 87 minute imaging interval. Regions of interest are plotted around the stomach. RESULTS: Expected T1/2 is 90 minutes. 24% emptying is observed during the 87 minute imaging interval for a calculated T1/2 of 216 minutes. IMPRESSION: Delayed gastric emptying. MTDD
[2020-02-10] MEDS ORDERED: REGL5TAB2 PO (13:05)
[2020-02-10] MEDS ORDERED: PANT40TA29 PO (13:05)
[2020-02-10] MEDS ORDERED: DICY10AM IM (13:05)
[2020-02-10] MEDS ORDERED: HYOS125TA SL (13:05)
[2020-02-10] MEDS ORDERED: DICY1CAP8 PO (13:22)
--- NOTE | 2020-02-10 18:55 | DS.PDOC ---
Discharge Summary General Date of Admission Feb 07, 2020 at 04:40 Date of Discharge 02/10/20 Discharge Summary PROCEDURES PERFORMED DURING STAY: [None]. ADMITTING DIAGNOSES: Nausea/vomiting Reduced PO intake Severe protein calorie malnutrition Anxiety Leukocytosis SMA syndrome DISCHARGE DIAGNOSES: Nausea/vomiting Reduced PO intake Severe protein calorie malnutrition Anxiety Leukocytosis SMA syndrome COMPLICATIONS/CHIEF COMPLAINT: Intractable Vomiting. HISTORY OF PRESENT ILLNESS: 34-year-old female with a past medical history of chronic abdominal abdomen attributed to SMA syndrome, history of H. pylori infection , anxiety, depression status post surgery for SMA syndrome in november 2019 at [facility] in [place], [place] recently moved up here 1 month ago to be close to her father and rest of the family members presented to the emergency room because of severe abdominal pain and spasm with intractable nausea and vomiting for the past 2 days. She reports that she hasn't been able to keep anything down for the past 2 days. She denies any diarrhea. Currently she is having retching and dry heaving. She did report that she has chronic abdominal pain and for that she takes hyoscyamine sublingually. She reports that she is allergic to morphine, ketamine, haloperidol, and the only things that help her with the abdominal pain is a Dilaudid and Ativan. . She reports that she has lost about 20 pounds of weight in the past 2 years. In regards to her abdominal pain. It is spasmodic in nature. 10/ 10 in intensity. Located in the epigastrium and periumbilical region with radiation all over the abdomen. During episodes of pain she would sit forward in child's pose ( knee-Chest) position w ith a pillow stuffed underneath her belly. , It seems that she feels comfortable in this position. During my interview, she was shivering and her teeth were chattering and she says that she has these before of severe episode of pain comes on. Denied being cold. CT done in the emergency room showed narrowing of the duodenum inferior to the superior mesenteric artery, consistent with known eczema syndrome. The stomach was patulous, although not substantially distended, though the study was subop timal due to lack of intravenous contrast. Return contrast and the possibility of abdominal fat She was admitted for intractable abdominal pain, nausea and vomiting, unable to keep any food down for further evaluation and management. HOSPITAL COURSE: # Nausea/Vomiting and abdominal pain 2/2 SMA syndrome, questionable postsurgical complication? - Received dilaudid, Bentyl and Levsin for pain control. - Received zofran, Reglan for nausea -Upgraded to full liquid diet, and patient was able to tolerate 25-50% of diet, though she states that she can drink chocolate milk without difficulty. -Gastric emptying study preliminary discussed with radiology, Dr. Villaseñor. Total transit time 216 minutes, increased from normal of 90. -General surgery consulted, Dr. Guzman. Intermittent symptoms, likely not related to anatomical problem. Perhaps anxiety playing a role in relapsing and remitting nature of symptoms. Recommends close PCP f/u, as well as GI follow up as well as request for records at outside hospital in [place] for operative records. No surgical intervention required at this time and patient was cleared for discharge. #. Anxiety and depression - patient received benadryl, ativan prn while inpt - PCP follow up #. Low body weight, BMI 16.4 - Denies behavior suggests to of eating disorder. - Likely due to poor by mouth intake from chronic complaint of abdominal pain and vomiting. - patient is not emaciated, and has always had a small build DISCHARGE MEDICATIONS: Please see below. ALLERGIES: Please see below. PHYSICAL EXAMINATION ON DISCHARGE: VITAL SIGNS: Please see below. General: Patient is thin, bent over on bed, in pain. HEENT: PERRLA, EOMI, sclerae clear Neck: supple, normal ROM, no JVD Respiratory: lungs CTAB, no wheeze, no rales, no crackles CVS: RRR, normal S1, S2, no murmurs Abdo: soft, no masses, no hepatosplenomegaly, BS+, mild discomfort to palpation in the left upper quadrant. Extremities: no edema, pulses 2+ MSK: no joint deformities, normal ROM Neuro: no focal neuro deficits, moving all 4 extremities, CN2-12 intact. Strength 5/5 in all 4 extremities. No nystagmus. Psych: calm, cooperative, AAO x 3 LABORATORY DATA: Please see below. IMAGING: CT abdomen, pelvis wo contrast (02/07/2020): 1. Suboptimal study lacking intravenous contrast particularly in a thin patient with a paucity of abdominal fat. Allowing for this, there is no acute intra-abdominal abnormality. 2. Narrowing of the duodenum inferior to the superior mesenteric artery consistent with known SMA syndrome. The stomach is patulous although nondistended, and there is no bowel obstruction. NM-gastric emptying study (02/08/20): Expected T1/2 is 90 minutes. 24% emptying is observed during the 87 minute imaging interval for a calculated T1/2 of 216 minutes. IMPRESSION: Delayed gastric emptying. PROGNOSIS: good ACTIVITY: As tolerated DIET: as tolerated DISCHARGE PLAN: [place] home with PCP f/u (assistance provided to establish a PCP), as well as GI and General Surgery follow up. DISPOSITION: 01 Home, Self-Care. DISCHARGE INSTRUCTIONS: PLEASE FOLLOW UP WITH YOUR PRIMARY CARE DOCTOR WITHIN 3-5 DAYS PLEASE ASK PCP FOR REFERRAL TO GASTROENTEROLOGY PLEASE TAKE YOUR MEDICATIONS PRESCRIBED IF YOU DEVELOP WORSENING ABDOMINAL PAIN, CHEST PAIN, SHORTNESS OF BREATH, FEVERS, CHILLS, BLEEDING OR OTHERWISE WORSENING OF YOUR SYMPTOMS, PLEASE CALL 911 OR RETURN TO THE EMERGENCY DEPARTMENT. ITEMS TO FOLLOWUP ON ON OUTPATIENT: 1. records from surgical intervention from [place] DISCHARGE CONDITION: [Stable]. TIME SPENT ON DISCHARGE: Greater than 30 minutes. Vital Signs/I&Os Vital Signs Date Time Temp Pulse Resp B/P (MAP) Pulse Ox O2 Delivery O2 Flow Rate FiO2 02/10/20 08:20 16 Room Air 02/10/20 06:00 97.4 68 127/90 (102) 100 I&O- Last 24 Hours up to 6 AM 02/10/20 06:00 Intake Total 3260 ml Output Total 2800 ml Balance 460 ml Laboratory Data Labs 24H Laboratory Tests 2 02/10/20 06:42: Immature Granulocyte % (Auto) 0.2, Neutrophils (%) (Auto) 59.4, Lymphocytes (%) (Auto) 25.9, Monocytes (%) (Auto) 10.6H, Eosinophils (%) (Auto) 3.4H, Basophils (%) (Auto) 0.5, Neutrophils # (Auto) 5.1, Lymphocytes # (Auto) 2.2, Monocytes # (Auto) 0.9H, Eosinophils # (Auto) 0.3, Basophils # (Auto) 0.0, Nucleated Red Blood Cells % (auto) 0.0, Anion Gap 2L, Glomerular Filtration Rate > 60.0, Calcium Level 8.3L, Total Bilirubin 0.6, Aspartate Amino Transf (AST/SGOT) 16, Alanine Aminotransferase (ALT/SGPT) 20, Alkaline Phosphatase 46, Total Protein 6.6, Albumin 3.2, Albumin/Globulin Ratio 0.9L CBC/BMP Laboratory Tests 02/10/20 06:42 Discharge Medications Scheduled Pantoprazole Sodium (Pantoprazole Sodium) 40 Mg Tablet.dr, 40 MG PO DAILY@2100 Scheduled PRN Dicyclomine HCl (Dicyclomine HCl) 10 Mg Capsule, 1 CAP PO TID PRN for ABDOMINAL PAIN Hyoscyamine Sulfate (Hyoscyamine Sulfate) 0.125 Mg Tab.subl, 0.125 MG SL TIDP PRN for abdominal pain Metoclopramide Hcl (Reglan) 5 Mg Tablet, 5 MG PO TID PRN for NAUSEA 1 hour prior to procedure Allergies Coded Allergies: Iodine and Iodide Containing Produc (Verified Allergy, Severe, SOB, 02/07/20) NEEDS PRE-TREATMENT FIRST haloperidol (Verified Allergy, Severe, SPIKES ANXIETY, 02/07/20) ketamine (Verified Allergy, Severe, ANAPHYLACTIC, 02/07/20) shellfish derived (Verified Allergy, Severe, ANAPHYLACTIC, 02/07/20) Penicillins (Verified Allergy, Mild, HIVES, 02/07/20) morphine (Verified Allergy, Mild, RASH, 02/07/20) VANESSA JARVIS MD Feb 10, 2020 18:55
== END 2020-02-10 14:13 | disposition home or self-care (01) ==
LOC: M ED 04:39 → M ED INP 04:40 → ENRESERV 12:04 → M MSPAV 12:57
PROVIDERS: ADMIT Internal Medicine Nephrology; ATTEND Family Medicine
DX: K55.1 Chronic vascular disorders of intestine (principal); E46 Unspecified protein-calorie malnutrition; K31.84 Gastroparesis; R10.9 Unspecified abdominal pain; D72.829 Elevated white blood cell count, unspecified; F41.9 Anxiety disorder, unspecified; F32.9 Major depressive disorder, single episode, unspecified; F12.10 Cannabis abuse, uncomplicated; Z88.5 Allergy status to narcotic agent; Z88.0 Allergy status to penicillin; Z91.013 Allergy to seafood; Z79.899 Other long term (current) drug therapy
CPT/HCPCS: 36415; 74176; 78264; 80048; 80053; 80076; 81001; 83605; 83690; 84702; 85025; 85027; 96361; 96372; 96374; 96375; 96376; 99285; A9541; J0500; J1170; J1200; J2060; J2405; J2765